=== PATIENT | female | born 1980 | race Caucasian/White ===

== ENCOUNTER 2016-09-25 06:13 | Day surgery (SDC) | payer MEDICARE, MEDICAID ==
[2016-09-25] VITALS (9 sets, daily range): BP systolic 120–139; BP diastolic 59–73
[~2016-09-25] VITALS: Ht 165.1 cm; Wt 74.8 kg
[~2016-09-25 06:13] MED LIST: BENT20TA PO; CHOL4POW4 PO; CYMB60CA3 PO; MINI5CAP PO; NEUR300C PO; OXYC1TAB23 PO; PANT40TA2 PO; ROPI2TAB24 PO; TRAZ1TAB14 PO
[2016-09-25] MEDS ORDERED: LR 1,000 ML IV ONE (06:30)
[2016-09-25] MEDS ORDERED: CEFUROXIME SODIUM 1.5 GM in D5W MINI-BAG PLUS 50 ML IV ONE (07:00)
[2016-09-25] MEDS ORDERED: THROMBIN SOLN 20,000 UNITS KIT As Ordered ONE (07:14)
[2016-09-25] MEDS ORDERED: BACITRACIN OINT 30GM As Ordered ONE (07:14)
[2016-09-25] MEDS ORDERED: BUPIVACAINE LIPOSOME/PF 1.3% 20 ML VIAL (13.3MG/ML)(EXPAREL) As Ordered ONE (07:15)
[2016-09-25] MEDS ORDERED: BACITRACIN PWD 50,000 UNITS VIAL As Ordered ONE (07:15)
[2016-09-25] MEDS: CARISOPRODOL 350 MG TAB PO SCH ×3 (09:00→21:01)
[2016-09-25] MEDS ORDERED: dexameTHASONE 4 MG/ML 1ML VIAL (J1100) As Ordered ONE (09:28)
[2016-09-25] MEDS ORDERED: MIDAZOLAM INJ 2 MG/2 ML VIAL (J2250) As Ordered ONE (09:28)
[2016-09-25] MEDS ORDERED: fentaNYL 250 MCG/5 ML INJECTION (J3010) As Ordered ONE (09:28)
[2016-09-25] MEDS ORDERED: ePHEDrine SULFATE 25 MG/5 ML(5MG/ML) SYRINGE As Ordered ONE (09:28)
[2016-09-25] MEDS ORDERED: ONDANSETRON 4MG/2ML VIAL (J2405) As Ordered ONE (09:28)
[2016-09-25] MEDS ORDERED: SUCCINYLCHOLINE 100 MG/5 ML SYRINGE (J0330) As Ordered ONE (09:29)
[2016-09-25] MEDS ORDERED: REMIFENTANIL 1MG 3ML VIAL As Ordered ONE (09:29)
[2016-09-25] MEDS ORDERED: PROPOFOL 200 MG/20 ML VIAL As Ordered ONE ×4 (09:29→10:43)
[2016-09-25] MEDS ORDERED: ONDANSETRON 4MG/2ML VIAL (J2405) IV PRN ×2 (11:30→12:00)
[2016-09-25] MEDS ORDERED: NORCO, ANEXSIA 5/325MG TABLET (HYDROcodone/ACETAMINOPHEN) PO PRN (11:30)
[2016-09-25] MEDS ORDERED: ACETAMINOPHEN TAB 650MG DOSE (2X325MG) PO PRN (11:30)
--- NOTE | 2016-09-25 11:30 | REP ---
C-ARM VIEWS THORACIC SPINE: AP and lateral views of the thoracic spine are obtained using a C-arm. Dorsal column stimulator leads are seen in the region of the mid thoracic spine. 22 seconds of fluoroscopy time utilized for the procedure. Signed by Chava Mcknight MD 09/25/2016 03:56 P
[2016-09-25] MEDS ORDERED: HYDROmorphone HCL 1 MG/ML SYRINGE (J1170) As Ordered ONE (11:39)
[2016-09-25] MEDS: HYDROmorphone HCL 1 MG/ML SYRINGE (J1170) IV PRN ×4 (11:42→12:03)
[2016-09-25] MEDS ORDERED: LR 1,000 ML IV SCH (12:00)
[2016-09-25] MEDS: PERCOCET 5MG/325MG TAB PO PRN ×2 (12:05→12:36)
[2016-09-25] MEDS: fentaNYL 100 MCG/2 ML INJECTION (J3010) IV PRN ×4 (12:20→12:43)
--- NOTE | 2016-09-25 12:51 | ROOPDOC ---
[facility] Report Of Operation Report of Operation DATE OF SURGERY: 09/25/2016 SURGEON: Dr. Lawrence Ohara VEHICLE RETURN ASSOCIATE: СЕРГЕЙ Angeles; СЕРГЕЙ Zuniga PREOPERATIVE DIAGNOSIS: Intractable back and right leg pain. POSTOPERATIVE DIAGNOSIS: Same PROCEDURE PERFORMED: 1. Partial bilateral laminectomy T8-T9. 2. Insertion of epidural spinal cord stimulator at T7 ([employer], [place] [employer]). 3. Electronic programming and interrogation of battery analysis ([employer], [employer]). 4. Subcutaneous implantation of pulse stimulator through separate incision. 5. lntra-operative use of C-arm fluoroscopy. 6. Electrophysiological monitoring of somatosensory and central motor evoked potentials of upper and lower extremities ANESTHESIA: GETA. ESTIMATED BLOOD LOSS: 100 cc. FINDINGS : Normal dura of thoracic spinal cord. DRAINS: 0 COMPLICATIONS: None. DISPOSITION: Stable to the PACU. INDICATIONS FOR THE PROCEDURE HISTORY: Mrs. Carlos is a 36 y/o F with signs, symptoms and radiographic evidence of intractable back pain and no history of post-laminectomy syndrome. She has been treated with (physical therapy, multiple pain medications, nerve blocks) with failure to address the symptomatology and decided to undergo insertion of a spinal cord stimulator. She underwent successful trial placement by [facility] and wished to have a permanent SCS implanted. SURGICAL RISKS: The patient and her family were well apprised of all objectives, benefits, risks and potential complications of the procedure, including but not limited to : worsening of current status, the possible need for further procedures, the risk of infection, headaches, CSF leak, possible spinal nerve injury resulting in paralysis, infection, injury to major vessels causing hemorrhage, stroke, loss of language function, coma and even . No assurance was given whether symptoms would improve following the procedure. The surgery is technically difficult procedure and despite the significant discomfort for the patient and the best effort of the physician, the surgery may be unsuccessful or may need to be aborted. Informed consent was obtained and secured in the chart after the patient and family voiced understanding of these risks and decided to proceed with the operation. DESCRIPTION OF THE PROCEDURE The patient was transferred to the operating room. He was given preoperative prophylactic IV antibiotics. ANESTHESIA: The patient was sedated and intubated without difficulty by the anesthesia service. Eyes were taped shut after ointment was applied to prevent corneal abrasion. A Shashank Hugger was placed over the upper body to maintain control of core body temperature. The electrophysiology monitoring team inserted needles in their proper locations and baseline SSEPs and motor-evoked potentials were obtained. POSITIONING: The patient was turned prone on gel pads of Prince table. All pressure points were carefully padded. OPERATIVE TECHNIQUE: The patient was prepped and draped in the standard sterile fashion. The C-arm fluoroscopy was draped and brought in to the operative field and the T8-T9 was identified. The skin was subsequently opened sharply with a # 15 scalpel blade. Dissection was carried down superiorly and inferiorly in the midline to expose supraspinous ligament and laminas. The musculature was elevated subperiosteally to expose the facets bilaterally with electrocautery and Arguello elevator. Hemostasis was achieved. Self-retaining retractors were then inserted. Spinal processes resection and partial laminectomy of T8 and T9 levels were performed. An ultrasound bone dissector BoneScalpel was used to remove T8and T9 laminas. The ligamentum flavum was then easily removed with Kerrison rongers. Epidural space was dissected with plastic dissector from [employer]. Bleeding from epidural veins has been controlled bipolar cautery. 32-contact rn surgical pcu has been inserted to the level of middle T7 vertebra into the epidural space without difficulty. Placement has been confirmed by C-arm fluoroscopy. The skin over the Right flank an approximately 5 cm incision performed with a # 15 scalpel blade. A pocket was developed for placement of the battery pulse generator. Utilizing a sharp trocar, a plastic cannula was brought from the spinal incision down into the flank incision; left in place and the electrodes passed through. The electrodes were then connected to the battery pulse. At this point, the pulse generator metal numerical tool programmer was brought near the operative field. The battery pulse generator was interrogated intraoperatively and programmed. The stimulator was set wiressly. The battery pulse generator was then secured to the fascia utilizing absorbable suture. In the spine incision, the electrodes were secured to the fascial edge silk suture as well. The fascial planes and the muscles were approximated utilizing 0 polyglactin synthetic absorbable suture Vicryl. The wound was irrigated copiously with antibiotic saline solution. The skin was re-approximated with interrupted 2-0 polyglactin synthetic absorbable suture Vicryl. The skin was then closed with Dermabond. The flank wound was also copiously irrigated with antibiotic saline solution and closed in layers utilizing 1-0 and 3-0 polyglactin synthetic absorbable suture Vicryl. The skin was then closed with Dermabond. Utilizing the pulse generator metal numerical tool programmer, verification was obtained at the end of the case to ensure adequate output reading from the newly placed device. All sponge counts, needle counts and instrument counts were correct at the end of the case times two. The electrophysiological monitoring remained stable from baseline through the end of the procedure. The patient tolerated the procedure well, without any complications and was transferred in stable condition to the recovery room. LAWRENCE OHARA MD Sep 25, 2016 12:51
[2016-09-25] MEDS: KCL 20MEQ IN D5/0.45NS 1000ML 1,000 ML IV SCH (13:25)
[2016-09-25] MEDS: GABAPENTIN 300 MG CAP PO SCH ×3 (14:25→21:02)
[2016-09-25] MEDS: PANTOPRAZOLE 40MG TAB (PROTONIX) PO SCH ×2 (15:10→21:01)
[2016-09-25] MEDS: DULoxetine 30 MG CAP (CYMBALTA) PO SCH (15:11)
[2016-09-25] MEDS: MORPHINE 4 MG/ML 1ML SYRINGE IV PRN ×2 (15:55→21:00)
[2016-09-25] MEDS: CEFUROXIME SODIUM 750 MG in D5W MINI-BAG PLUS 50 ML IV SCH (17:22)
[2016-09-25] MEDS: NORCO, ANEXSIA 5/325MG TABLET (HYDROcodone/ACETAMINOPHEN) PO PRN ×2 (17:23→22:35)
[2016-09-25] MEDS ORDERED: rOPINIRole 1MG TAB PO SCH (21:00)
[2016-09-25] MEDS: PRAZOSIN 1 MG CAP PO SCH (21:01)
[2016-09-26] VITALS: BP_SYST 102; BP_SYST 135; BP_DIAS 63; BP_DIAS 67
--- NOTE | 2016-09-26 | REPUSA ---
CT of the thoracic spine without contrast Clinical history: Pain. Spinal stimulator. Technique: Multiple axial CT images were obtained through the thoracic spine without administration o f contrast. Coronal and sagittal 3-D reconstructed images were also obtained. Findings: The vertebral bodies are in satisfactory positioning and alignment. No fractures or dislocations are demonstrated. A spinal stimulator wire passes into the posterior central canal at T9, and passes supe riorly to the level of T6/T7. Intervertebral disc spaces are well-maintained. There is no evidence of facet subluxation. The neural foramen appear grossly patent. The spinal canal demonstrates normal ca liber and contour without evidence of spinal stenosis. The surrounding soft tissues are within normal limits. Impression: No acute traumatic injury. Spinal stimulator wire as described.
[2016-09-26] MEDS: CEFUROXIME SODIUM 750 MG in D5W MINI-BAG PLUS 50 ML IV SCH ×2 (01:42→08:20)
[2016-09-26 04:00] VITALS: BP 125/65
[2016-09-26] MEDS: MORPHINE 4 MG/ML 1ML SYRINGE IV PRN ×2 (04:05→10:36)
[2016-09-26 08:00] VITALS: BP 110/58
[2016-09-26] MEDS: DULoxetine 30 MG CAP (CYMBALTA) PO SCH (08:18)
[2016-09-26] MEDS: PANTOPRAZOLE 40MG TAB (PROTONIX) PO SCH (08:18)
[2016-09-26] MEDS: NORCO, ANEXSIA 5/325MG TABLET (HYDROcodone/ACETAMINOPHEN) PO PRN ×2 (08:20→12:34)
[2016-09-26] MEDS: GABAPENTIN 300 MG CAP PO SCH (08:20)
[2016-09-26] MEDS: CARISOPRODOL 350 MG TAB PO SCH (08:20)
[2016-09-26] MEDS: PRAZOSIN 1 MG CAP PO SCH (08:21)
[2016-09-26] MEDS: KCL 20MEQ IN D5/0.45NS 1000ML 1,000 ML IV SCH ×2 (10:57→12:19)
[2016-09-26 12:00] VITALS: BP 105/63
[2016-09-26] MEDS ORDERED: SOMA350T PO (12:14)
--- NOTE | 2016-09-26 13:09 | IPNPDOC ---
Date Seen The patient was seen on 09/26/16. Progress Note SUBJECTIVE Ms Palm is a pleasant 36 year old female who has underwent dorsal column stimulator on 09/25/[address] Ohara for chronic low back pain worse on the right side. Surgery was uneventful. She has been doing well with the exception of increased pain and muscle spasm with movement. She understands she will have some pain and be sore after her surgery. She also has some numbness over the skin in low back region that she noticed yesterday post-op. She denies no associated pain or difficulty with ambulation, urination, or BMs. She denies any bladder or bowel incontinence, calf or leg pain, N/V/C/D, chest pain, shortness of breath, or issues with gait. OBJECTIVE Clinical status: AVSS Neurological status: Alert and orientated x3. GCS= [id number]= 15. Speech is fluent. Wound/incision: Incision appears to be healing well. Prineo dressing covering incision is intact. No increased drainage, erythema, or increased pain at the site. mattress stripper= intact. Motor: R=L=5/5=UE=LE. No pronator drift. Sensory: Intact to light touch in all 4 extremities, R=L=UE=LE- with the exception of decreased sensation in the hip region bilaterally. Gait= appears stable. Able to walk on heels and toes. Tandem gait performed without difficulty. IMAGING: CT thoracic- See EMR. ASSESSMENT Patient stable. PLAN 1. S/p day 1 of placement of permanent paddle lead dorsal column stimulator. She appears to be doing well. She has some concerns regarding her post-op pain at home. She will be discharged with a Rx for [place] and [place] 10/325. She has Oxy at home and was encouraged to use the Oxy for breakthrough pain. She understands she will have some discomfort due to the nature of the surgery and to take her pain medications as prescribed. A hand out sheet regarding post-op instructions have been given to her. She will follow up with PM for follow up since she lives 3 hours away. She will call or RTO if she has any questions or concerns. INSTRUCTIONS: The following discharge instructions have been discussed with the patient. 1. Keep incision dry for at least 48 hours. 2. Keep incision clean and inspect daily for signs of infection (redness, discharge, swelling, increased pain, and warmth. 3. You may shower 48 hours after your surgery. Avoid bath tubs, hot tubs/ whirlpools, and swimming pools until cleared by surgeon or PA. 4. Do not apply lotions or creams near the incision site. 5. Start walking around the house as soon as possible. This helps to reduce swelling and lowers the chance of blood clots. 6. Continue to gradually increase physical activity. 7. Climbing stairs at home is permitted as tolerated with caution. If available use handrails and taken time going up and down the stairs pain close attention to place each foot on each step carefully. 8. No bending, twisting, pulling, pushing, or lifting greater than 5 pounds until follow-up in the office. 9. No strenuous activity for at least 2 weeks. 10. Get plenty of rest. 11. Follow-up balance diet and drink plenty of water. 12. Decreased activity and pain medications may promote constipation, so you may want to add more raw fruit to your diet. A mild [id number] stool softener or laxative may be used if necessary. 13. Take pain medication as prescribed. Pain medication will not remove all the pain, but will lessen it significantly. 14. Do not drink alcohol when taking pain medications. 15. Do not drive or operate any machinery until youre given specific instructions about driving when you follow-up in the office. 16. She is to call office if any new signs or symptoms develop; [phone]. 17. She understands to call the office if any new questions arise. WHAT TO EXPECT: - Soreness, stiffness, and aching can be expected after surgery. - Vrua-zs-jepoorqc postoperative pain. - Periods of fatigue and/or tiredness. -Healing is a slow and gradual process. - May experience a sore throat and/or hoarseness of your voice. - Some numbness may be present around the area of the incision which may persist for several weeks. WHEN TO CALL: - Increased swelling or bruising. - If swelling and redness persist after a few days. - Increased redness along the incision. -If any unusual bleeding or drainage developed at the incision site. -If severe or increased pain not relieved by medication develops. - If any side effects to medications, such as rash, nausea, vomiting, or headache, arises. - If temperature of 100.5 or greater. - If any calf pain and/or swelling in any extremity develops. - Any new or increased difficulty breathing or shortness of breath. - Any loss of feeling or motion. - Increased intensity of headache or headache not responding tear medications. - Inability to urinate. - Extreme fatigue or lethargy. - Any worsening of any of your symptoms. All questions have been answered to patient's satisfaction. Patient understands and is aware of possible catastrophic sequela if she does not follow these recommendations. Patient agrees to follow-up with PM within 2 weeks or sooner if needed. Cristiane Zuniga RPA-C VS, I&O, 24H, Fishbone Vital Signs/I&O Vital Signs Date Time Temp Pulse Resp B/P (MAP) Pulse Ox O2 Delivery O2 Flow Rate FiO2 09/26/16 12:34 20 09/26/16 12:00 98.3 91 105/63 (77) 91 Room Air 09/26/16 04:00 2.0 I&O- Last 24 Hours up to 6 AM 09/26/16 06:00 Intake Total 3600 ml Output Total 3100 ml Balance 500 ml SKINNY ZUNIGA PA-C Sep 26, 2016 13:09
== END 2016-09-26 12:55 | disposition home or self-care (01) ==
LOC: M SDC 06:13 → M PED 13:10 → M SDC 09-26 12:55
PROVIDERS: ATTEND Neurological Surgery
DX: M54.17 Radiculopathy, lumbosacral region (principal); M79.604 Pain in right leg; F41.9 Anxiety disorder, unspecified; M12.9 Arthropathy, unspecified; J45.909 Unspecified asthma, uncomplicated; F32.9 Major depressive disorder, single episode, unspecified; K21.9 Gastro-esophageal reflux disease without esophagitis; G43.909 Migraine, unspecified, not intractable, without status migrainosus; K52.9 Noninfective gastroenteritis and colitis, unspecified; F17.210 Nicotine dependence, cigarettes, uncomplicated; T88.59XD Other complications of anesthesia, subsequent encounter; M79.7 Fibromyalgia; R56.9 Unspecified convulsions; F43.10 Post-traumatic stress disorder, unspecified; Z88.6 Allergy status to analgesic agent; Z79.899 Other long term (current) drug therapy; Z98.1 Arthrodesis status; Z98.51 Tubal ligation status; Z87.81 Personal history of (healed) traumatic fracture
CPT/HCPCS: 63655; 63685; 72128; 76000; 96374; 96375; C1767; C1820; J0330; J0697; J1100; J1170; J2250; J2405; J3010